=== PATIENT | female | born 2000 | race Native Hawaiian/Other Pacific Islander ===

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

== ENCOUNTER 2020-05-20 17:18 | Emergency (ER) | payer OTHER ==
[~2020-05-20] VITALS: Ht 160 cm; Wt 69.9 kg
[2020-05-20 20:10] VITALS: BP 117/62; TEMP 97.8
== END 2020-05-20 20:10 | disposition home or self-care (01) ==
LOC: ED 17:18
DX: S90.32XA Contusion of left foot, initial encounter (principal); W20.8XXA Other cause of strike by thrown, projected or falling object, initial encounter; Y92.89 Other specified places as the place of occurrence of the external cause
CPT/HCPCS: 99282

== ENCOUNTER 2020-10-24 10:28 | Emergency (ER) | payer OTHER ==
[~2020-10-24] VITALS: Ht 160 cm; Wt 72.1 kg
[2020-10-24 10:30] VITALS: TEMP 98
[2020-10-24] MEDS ORDERED: PRENATAL1 T10 PO (10:41)
[2020-10-24 10:59] LABS: PLATELET COUNT 307 K/uL (152-353)
[2020-10-24 11:03] LABS: POTASSIUM 3.4 mmol/L (3.6-5.2)
[2020-10-24 11:12] LABS: PARTIAL THROMBOPLASTIN TIME 26.2 SECONDS (24.5-33.6)
[2020-10-24 12:11] VITALS: BP 132/78
== END 2020-10-24 12:35 | disposition home or self-care (01) ==
LOC: ED 10:28
PROVIDERS: Hospitalist
DX: O23.31 Infections of other parts of urinary tract in pregnancy, first trimester (principal); E86.0 Dehydration; Z3A.01 Less than 8 weeks gestation of pregnancy
CPT/HCPCS: 36415; 80053; 81000; 84702; 85027; 85610; 85730; 87088; 96360; 96365; 96375; 99284; J0696; J2405

== ENCOUNTER 2020-10-28 11:14 | Emergency (ER) | payer OTHER ==
[~2020-10-28] VITALS: Ht 160 cm; Wt 72.6 kg
[~2020-10-28 11:14] MED LIST changes: +PRENATAL1 T10 PO
[2020-10-28 11:17] VITALS: BP 128/75; TEMP 97.9
[2020-10-28 12:01] LABS: PLATELET COUNT 306 K/uL (152-353)
[2020-10-28 12:41] LABS: POTASSIUM 3.7 mmol/L (3.6-5.2)
== END 2020-10-28 13:26 | disposition home or self-care (01) ==
LOC: ED 11:14
PROVIDERS: Hospitalist
DX: O26.851 Spotting complicating pregnancy, first trimester (principal); Z3A.01 Less than 8 weeks gestation of pregnancy
CPT/HCPCS: 80053; 81000; 84702; 85027; 85610; 85730; 96360; 99284

== ENCOUNTER 2020-12-31 15:29 | Outpatient (CLI) | payer OTHER | END 2020-12-31 23:15 | disposition home or self-care (01) | LOC: LABW 15:29 | PROVIDERS: ATTEND Nurse Practitioner Family | DX: R05 Cough (principal); J02.9 Acute pharyngitis, unspecified; Z11.52 Encounter for screening for COVID-19 | CPT/HCPCS: 87502; 87635; 87651; G2023; U0003 ==

== ENCOUNTER 2021-02-26 11:15 | Emergency (ER) | payer OTHER ==
[~2021-02-26] VITALS: Ht 160 cm; Wt 72.6 kg
[2021-02-26 12:43] VITALS: BP 114/76; TEMP 98.3
== END 2021-02-26 12:45 | disposition home or self-care (01) ==
LOC: ED 11:15
DX: J40 Bronchitis, not specified as acute or chronic (principal); J32.8 Other chronic sinusitis; Z3A.25 25 weeks gestation of pregnancy; Z86.16 Personal history of COVID-19
CPT/HCPCS: 99281

== ENCOUNTER 2022-04-04 22:27 | Emergency (ER) | payer OTHER ==
[~2022-04-04] VITALS: Ht 160 cm; Wt 74.8 kg
[2022-04-04 23:59] LABS: PLATELET COUNT 344 K/uL (152-353)
[2022-04-05 00:03] LABS: POTASSIUM 4.1 mmol/L (3.6-5.2); SODIUM 139 mmol/L (136-145)
[2022-04-05 00:05] LABS: PARTIAL THROMBOPLASTIN TIME 27.2 SECONDS (24.5-33.6)
[2022-04-05 02:05] VITALS: BP 126/74; TEMP 98.5
== END 2022-04-05 02:05 | disposition home or self-care (01) ==
LOC: ED 22:27
PROVIDERS: Emergency Medicine
DX: R07.89 Other chest pain (principal)
CPT/HCPCS: 36415; 80053; 80307; 81002; 81025; 83690; 84443; 84484; 85027; 85610; 85730; 93005; 96375; 99284; J2270; J2405; J3490

== ENCOUNTER 2022-05-25 19:30 | Emergency (ER) | payer OTHER ==
[~2022-05-25] VITALS: Ht 160 cm; Wt 74.8 kg
[2022-05-25 19:36] VITALS: BP 137/86; TEMP 99.9
[2022-05-25 21:00] LABS: PLATELET COUNT 317 K/uL (152-353)
[2022-05-25 21:08] LABS: POTASSIUM 3.6 mmol/L (3.6-5.2)
[2022-05-25] MEDS ORDERED: NITR100C56 PO (21:25)
[2022-05-25] MEDS ORDERED: ONDA4TAB3 PO (21:25)
== END 2022-05-25 21:42 | disposition home or self-care (01) ==
LOC: ED 19:30
PROVIDERS: Emergency Medicine
DX: O23.41 Unspecified infection of urinary tract in pregnancy, first trimester (principal); N39.0 Urinary tract infection, site not specified; Z3A.01 Less than 8 weeks gestation of pregnancy
CPT/HCPCS: 36415; 80048; 81000; 81025; 85027; 87086; 87088; 96372; 99283; J0696

== ENCOUNTER 2022-07-27 21:35 | Emergency (ER) | payer OTHER ==
[~2022-07-27 21:35] MED LIST changes: +NITR100C56 PO; +ONDA4TAB3 PO
[2022-07-28 02:42] LABS: POTASSIUM 3.6 mmol/L (3.6-5.2)
[2022-07-28 02:55] LABS: PLATELET COUNT 288 K/uL (152-353)
== END 2022-07-28 00:45 | disposition home or self-care (01) ==
LOC: ED 21:35
PROVIDERS: Emergency Medicine
DX: R10.84 Generalized abdominal pain (principal); R31.9 Hematuria, unspecified; K59.09 Other constipation; Z3A.14 14 weeks gestation of pregnancy
CPT/HCPCS: 36415; 80053; 80307; 81000; 85027; 96372; 99283